=== PATIENT | female | born 1940 | race Two or more races ===

== ENCOUNTER 2017-12-11 19:02 | Inpatient (IN) | payer MEDICARE ==
[~2017-12-11] VITALS: Ht 154.9 cm; Wt 77.6 kg
[2017-12-11 19:00] VITALS: BP 162/64
[2017-12-11] MEDS ORDERED: POTA-10 PO (19:37)
[2017-12-11] MEDS ORDERED: TRAM50TA PO (19:37)
[2017-12-11] MEDS ORDERED: ALPR0.255 PO (19:37)
[2017-12-11] MEDS ORDERED: AMLO10TA4 PO (19:37)
[2017-12-11] MEDS ORDERED: VALS1TAB7 PO (19:37)
[2017-12-11] MEDS ORDERED: PRAV40TA PO (19:37)
[2017-12-11] MEDS ORDERED: ATEN50TA PO (19:37)
[2017-12-11] MEDS ORDERED: OMEP20CA10 PO (19:37)
[2017-12-11] MEDS ORDERED: LEVO50TA8 PO (19:37)
[2017-12-11] MEDS ORDERED: LORAZEPAM 0.5 MG TABLET PO PRN ×2 (20:30→22:00)
[2017-12-11] MEDS ORDERED: ACETAMINOPHEN 325 MG TABLET PO PRN (20:30)
[2017-12-11] MEDS ORDERED: MAGNESIUM HYDROXIDE 30 ML LIQUID UDC PO PRN (20:30)
[2017-12-11] MEDS ORDERED: TEMAZEPAM 7.5 MG CAPSULE PO PRN (20:30)
[2017-12-11] MEDS ORDERED: MAG HYDROX/AL HYDROX/SIMETH 30 ML LIQUID UDC PO PRN (20:30)
[2017-12-11] MEDS ORDERED: ALPRAZOLAM 0.25 MG TABLET PO PRN (22:00)
[2017-12-11] MEDS: AMLODIPINE 10 MG TABLET PO SCH (22:08)
[2017-12-11 22:10] VITALS: BP 162/64
[2017-12-12] MEDS: LEVOTHYROXINE SODIUM 50 MCG TABLET PO SCH (06:22)
[2017-12-12 07:30] VITALS: BP 180/67
[2017-12-12 07:34] LABS: BASOPHILS # (AUTO) 0.1 K/uL (0.0-8.0); BASOPHILS % (AUTO) 0.7 % (0.0-2.0); EOSINOPHILS # (AUTO) 0.3 K/uL (0.0-0.7); EOSINOPHILS % (AUTO) 3.1 % (0.0-7.0); HEMATOCRIT 39.4 % (31.2-41.9); HEMOGLOBIN 13.8 g/dL (10.9-14.3); LYMPHOCYTES # (AUTO) 1.6 K/uL (20.0-40.0); LYMPHOCYTES % (AUTO) 18.3 % (20.5-51.5); MEAN CORPUSCULAR HEMOGLOBIN 32.3 uug (24.7-32.8); MEAN CORPUSCULAR HGB CONC 35 g/dL (32.3-35.6); MONOCYTES # (AUTO) 0.6 K/uL (2.0-10.0); MONOCYTES % (AUTO) 7.2 % (0.0-11.0); NEUTROPHILS % (AUTO) 70.7 % (38.5-71.5); PLATELET COUNT (AUTO) 194 K/uL (179-408); RED BLOOD CELL COUNT(AUTO) 4.28 MIL/uL (3.63-4.92); WHITE BLOOD COUNT (AUTO) 8.5 K/uL (3.8-11.8)
[2017-12-12 07:49] LABS: ALANINE AMINOTRANSFERASE 17 U/L (14-59); ALKALINE PHOSPHATASE 73 U/L (50-136); ASPARTATE AMINOTRANSFERASE 19 U/L (15-37); BILIRUBIN,TOTAL 1.1 mg/dL (0.2-1.0); CARBON DIOXIDE 26 mmol/L (21-32); CHLORIDE 107 mmol/L (98-107); CHOLESTEROL 129 mg/dL (<200); CREATININE 1.1 mg/dL (0.6-1.3); GLUCOSE 137 mg/dL (74-106); GLUCOSE FASTING 137 mg/dL (70-115); HDL CHOLESTEROL 51 mg/dL (40-60); MAGNESIUM 1.8 mg/dL (1.8-2.4); PHOSPHOROUS 2.3 mg/dL (2.5-4.9); POTASSIUM 3.2 mmol/L (3.5-5.1); TOTAL PROTEIN, SERUM 7.9 g/dL (6.4-8.2); TRIGLYCERIDES 96 MG/DL (30-150); UREA NITROGEN, BLOOD 20 mg/dL (7-18)
[2017-12-12 08:56] LABS: THYROID STIMULATING HORMONE 1.899 mIU/mL (0.358-3.740)
[2017-12-12] MEDS ORDERED: LEVOTHYROXINE SODIUM 50 MCG TABLET PO SCH (09:00)
[2017-12-12] MEDS ORDERED: Medication Not On Formulary EA (Potassium Chloride (K-Dur) 10 MEQ) PO SCH (09:00)
[2017-12-12] MEDS ORDERED: Medication Not On Formulary EA (Valsartan/Hydrochlorothiazide (Diovan Hct 320-12.5 Mg Ta PO SCH (09:00)
[2017-12-12] MEDS: POTASSIUM CHLORIDE 10 MEQ TAB.PRT.SR PO SCH ×2 (09:35→12:32)
[2017-12-12] MEDS: LOSARTAN POTASSIUM 50 MG TABLET PO SCH (09:35)
[2017-12-12] MEDS: HYDROCHLOROTHIAZIDE 12.5 MG CAPSULE PO SCH (09:35)
[2017-12-12] MEDS: ATENOLOL 50 MG TABLET PO SCH (10:32)
[2017-12-12] MEDS ORDERED: hydrALAZINE HCL 25 MG TABLET PO PRN (11:00)
[2017-12-12] MEDS ORDERED: POTASSIUM CHLORIDE 20 MEQ TAB.PRT.SR PO ONE (11:00)
[2017-12-12] MEDS ORDERED: NEUTRA PHOS PACKET PO ONE (11:00)
[2017-12-12 16:58] VITALS: BP 169/82
[2017-12-12] MEDS ORDERED: SERTRALINE HCL 50 MG TABLET PO SCH (17:00)
[2017-12-12] MEDS ORDERED: WARFARIN SODIUM 3 MG TABLET PO SCH (17:00)
[2017-12-12 19:30] VITALS: BP 113/71
[2017-12-12] MEDS: AMLODIPINE 10 MG TABLET PO SCH (20:49)
[2017-12-12] MEDS ORDERED: ATORVASTATIN 10 MG TABLET PO SCH (21:00)
[2017-12-13] MEDS: HYDROCHLOROTHIAZIDE 12.5 MG CAPSULE PO SCH (07:51)
[2017-12-13] MEDS: LOSARTAN POTASSIUM 50 MG TABLET PO SCH (07:51)
[2017-12-13] MEDS: ATENOLOL 50 MG TABLET PO SCH (07:51)
[2017-12-13] MEDS: LEVOTHYROXINE SODIUM 50 MCG TABLET PO SCH (07:51)
[2017-12-13] MEDS: POTASSIUM CHLORIDE 10 MEQ TAB.PRT.SR PO SCH (07:52)
[2017-12-13 10:36] VITALS: BP 171/62
[2017-12-13 11:37] VITALS: BP 171/69
[2017-12-13] MEDS ORDERED: CLONIDINE HCL 0.1 MG TABLET PO ONE (11:45)
[2017-12-13 12:09] VITALS: BP 153/70
== END 2017-12-13 12:20 | disposition home or self-care (01) | DRG 885 ==
LOC: ER 19:05 → GPS 20:24
PROVIDERS: ADMIT Psychiatry & Neurology Psychosomatic Medicine; ATTEND Nurse Practitioner Acute Care
DX: F33.1 Major depressive disorder, recurrent, moderate (principal); G47.00 Insomnia, unspecified; K21.9 Gastro-esophageal reflux disease without esophagitis; K58.9 Irritable bowel syndrome, unspecified; I48.91 Unspecified atrial fibrillation; Z95.0 Presence of cardiac pacemaker; E78.5 Hyperlipidemia, unspecified; Z90.710 Acquired absence of both cervix and uterus; Z90.49 Acquired absence of other specified parts of digestive tract; I10 Essential (primary) hypertension; E03.9 Hypothyroidism, unspecified; E83.39 Other disorders of phosphorus metabolism; E87.6 Hypokalemia; E80.6 Other disorders of bilirubin metabolism; K44.9 Diaphragmatic hernia without obstruction or gangrene; M19.90 Unspecified osteoarthritis, unspecified site; R73.9 Hyperglycemia, unspecified; T45.0X Poisoning by, adverse effect of and underdosing of antiallergic and antiemetic drugs; T42 Poisoning by, adverse effect of and underdosing of antiepileptic, sedative- hypnotic and antiparkinsonism drugs
CPT/HCPCS: 36415; 71045; 82306; 83735; 84100; 84443; 85025; 85610; 93005; A4663